=== PATIENT | female | born 2000 | race Caucasian/White ===

== ENCOUNTER 2019-10-24 17:02 | Emergency (ER) | payer BC ==
--- NOTE | 2019-10-24 17:20 | TELE ---
HPI Do you have fever,cough or shortness of breath?: No - General Reason For Visit: COVID TESTING History Source: Patient Exam Limitations: No Limitations - History of Present Illness Associated Symptoms: reports: denies symptoms Past History - Travel History Traveled outside of the country in the last 30 days: No Close contact w/someone who was outside of country & ill: No - Medical History Anemia: No Asthma: No Cancer: No Cardiac Disorders: No Hx Myocardial Infarction: No CVA: No COPD: No CHF: No DVT: No Dementia: No Diabetes: No Hx Glaucoma: No Dialysis: No GI Disorders: No Disorders: No HTN: No Hypercholesterolemia: No HIV: No Kidney Stones: No Liver Disease: No - Surgical History Abdominal Surgery: No Appendectomy: No Cardiac Surgery: No Cholecystectomy: No Gastric Stapling: No GI Surgery: No Lung Surgery: No Neurologic Surgery: No Orthopedic Surgery: No Review of Systems - Review of Systems Constitutional: No: Chills, Fever, Malaise, Night Sweats Respiratory: No: Cough Cardiac (ROS): No: Chest Pain *Physical Exam - Physical Exam Respiratory/Chest: negative: Respiratory Distress Discharge Diagnosis at time of Disposition: Encounter for laboratory testing for COVID-19 virus - Referrals - Patient Instructions - Discharge Disposition: HOME Condition at time of Disposition: Stable
== END 2019-10-24 17:22 | disposition home or self-care (01) ==
LOC: JVIRT 17:02
DX: Z11.59 Encounter for screening for other viral diseases (principal)
CPT/HCPCS: Q3014-GT